=== PATIENT | female | born 2000 | race Caucasian/White ===

== ENCOUNTER 2021-01-29 04:25 | Emergency (ER) | payer MEDICAID, SELFPAY ==
[2021-01-29 04:33] VITALS: BMI 17.2
[2021-01-29 04:45] LABS: Microscopic, Urine URINE MICROSCOPIC (MICROSCOPIC)
[2021-01-29 04:47] LABS: Appearance,Urine CLEAR (Clear); Basophils % 0.2 % (0.1-2.0); Bilirubin,Urine Negative (Negative); Blood, Urine TRACE-L (Negative); Color,Urine YELLOW (Yellow); Eosinophils # 0.1 K/mm3 (0.0-0.4); Eosinophils % 0.9 % (0.1-12.0); Glucose,Urine (UA) Negative (Negative); Hematocrit 39.5 % (37.0-47.0); Hemoglobin 13.6 g/dL (12.2-16.2); Ketones,Urine Negative (Negative); Leukocyte Esterase,Urine TRACE (Negative); Lymphocytes # 1.2 K/mm3 (0.7-4.5); Mean Corpuscular HGB Conc 34.3 g/dL (31.8-35.4); Mean Corpuscular Hemoglobin 31.2 pg (27.0-31.2); Mean Corpuscular Volume 90.8 fl (81-99); Mean Platelet Volume 9.1 fl (7.4-10.4); Monocytes # 0.9 K/mm3 (0.1-1.0); Monocytes % 8.5 % (1.7-9.3); Neutrophils # 8.6 K/mm3 (1.8-7.8); Neutrophils % 79.4 % (37.0-80.0); Nitrate,Urine POSITIVE (Negative); PH,Urine 6.5 (5.0-8.5); Platelet Count 165 K/mm3 (142-424); Protein,Urine Negative (Negative); Red Blood Count 4.35 M/mm3 (4.20-5.40); Red Cell Distribution Width 12.4 % (11.5-17.5); Urobilinogen,Urine 0.2 EU/dl (0.2); White Blood Count 10.8 K/mm3 (4.8-10.8)
--- NOTE | 2021-01-29 04:47 | CT_ITS ---
PROCEDURE: CT ABDOMEN PELVIS WO CON CLINICAL INDICATION: left flank pain Left flank pain with hematuria COMPARISON: No exams were available for comparison TECHNIQUE: Axial images obtained with sagittal and coronal reformats. All CT scans at the facility use one or more dose reduction, viz: automated exposure control, ma/kV adjustment per patient size (including targeted exams where dose is matched to indication, i.e. head), or iterative reconstruction technique. FINDINGS: LOWER THORAX: There is a noncalcified nodule in the right lower lobe posteriorly measuring approximately 4 mm ABDOMEN & PELVIS: The liver, gallbladder, adrenal glands, and pancreas have an unremarkable appearance. No renal or ureteral calculi. No hydronephrosis. Questionable mild edematous changes of the left kidney. Mild haziness of the perinephric fat on the left medially. Borderline splenomegaly noted at 13 cm. Mild amount of retained colonic feces. No evidence of appendicitis or diverticulitis. The uterus is anteverted. Mild nonspecific thickening of the urinary bladder wall. Small amount fluid is present in the pelvis. No acute bony findings. There are few small mildly prominent retroperitoneal lymph nodes. IMPRESSION: Questionable edematous appearance of the left kidney with minimal stranding of the perinephric fat. No hydronephrosis or calculus apparent. Findings may be related to underlying infection or recently passed stone. There are some mildly prominent retroperitoneal lymph nodes which could be reactive in nature. Mild amount of retained colonic feces 4 mm nodule right lower lobe posteriorly of questionable clinical significance. Dictated by: Landon Jordan MD 01/29/2021 07:31 Landon Jordan MD in [place] 01/29/2021 07:31
[2021-01-29 04:48] LABS: Urine Pregnancy, HCG Qual. Negative (Negative)
[2021-01-29 04:52] VITALS: BP 139/78; PULSE 103; RESP 20; TEMP 37.2; O2SAT 98; BMI 19.2
[2021-01-29 04:54] LABS: Alanine Aminotransferase 11 U/L (12-78); Albumin Level 4.9 g/dl (3.5-5.0); Albumin/Globulin Ratio 1.4 (1.1-1.8); Alkaline Phosphatase 93 U/L (38-126); Amylase 67 U/L (30-110); Anion Gap 13.8 mEq/L (5-15); Aspartate Amino Transferase 21 U/L (14-36); Bilirubin,Total 0.8 mg/dl (0.2-1.3); Blood Urea Nitrogen 8 mg/dl (7-17); Calcium 9.7 mg/dl (8.4-10.2); Carbon Dioxide 21 mmol/L (22.0-30.0); Chloride 105 mmol/L (98-107); Creatinine Clearance Estimated 96 mL/min (50-200); Estimated Glomerular Filt Rate 91 ml/min (>60); GFR (African American) 110 ML/MIN (>60); Globulin 3.5 g/dL (1.3-3.2); Glucose 121 mg/dl (74-100); Potassium 3.8 mmoL/L (3.5-5.1); Sodium 136 mmol/L (136-145); Total Protein,Serum 8.4 g/dl (6.3-8.2)
[2021-01-29 04:55] LABS: Lipase 60 U/L (23-300)
[2021-01-29 05:12] LABS: Bacteria,Urine 2+ /lpf; Mucus,Urine 1+ /lpf; WBC,Urine Occasional #/hpf (0-3)
[2021-01-29 05:14] LABS: Procalcitonin 0.051 ng/mL (0.0-2.0)
--- NOTE | 2021-01-29 05:23 | [facility].EDUROGF ---
ED Disposition Clinical Impression: Flank pain, acute UTI (urinary tract infection) Qualifiers: Urinary tract infection type: site unspecified Hematuria presence: without hematuria Qualified Code(s): N39.0 - Urinary tract infection, site not specified Disposition: Home, Self-Care Condition on Discharge: Good Instructions: DI for Flank Pain Additional Instructions: call for culture results and consider seeing urology Prescriptions: levoFLOXacin [Levaquin 500mg tab] 500 mg PO DAILY #7 tab Transmission Status: Pending to [facility] Referrals: PCP,No [Primary Care Provider] - - Critical Care Critical Care Time: No Attestation: On 01/29/21, the high probability of a clinically significant, sudden or life threatening deterioration of the following system(s) required my full and direct attention, intervention and personal management. The time I documented below is in addition to time spent performing reported procedures but includes the following listed in this critical care notation. Medical Decision Making - Medical Records Medical records reviewed: Yes: I reviewed the patient's medical records. - Javier Inquiry Pt receiving controlled substance: No Vital Signs: 01/29/21 04:52 Temperature 99.0 F Temperature Source Oral Pulse Rate [Right] 103 H Respiratory Rate 20 Blood Pressure [Right Arm] 139/78 Blood Pressure Mean [Right Arm] 98 02 Sat by Pulse Oximetry 98 Oxygen Delivery Method Room Air - Lab Data Lab results reviewed: Yes: I reviewed the patient's lab results. Lab Results 01/29/21 04:40: Urine Color Yellow, Urine Appearance Clear, Urine pH 6.5, Ur Specific [place] 1.020, Urine Protein Negative, Urine Glucose (UA) Negative, Urine Ketones Negative, Urine Blood Trace-l, Urine Nitrate Positive, Urine Bilirubin Negative, Urine Urobilinogen 0.2, Ur Leukocyte Esterase Trace, Urine RBC 3-5, Urine WBC Occasional, Ur Squamous Epith Cells 3-5, Urine Bacteria 2+, Urine Mucus 1+ 01/29/21 04:40: WBC 10.8, RBC 4.35, Hgb 13.6, Hct 39.5, MCV 90.8, MCH 31.2, MCHC 34.3, RDW 12.4, Plt Count 165, MPV 9.1, Neut % (Auto) 79.4, Lymph % (Auto) 11.0, [place] % (Auto) 8.5, Eos % (Auto) 0.9, Baso % (Auto) 0.2, Neut # (Auto) 8.6 H, Lymph # (Auto) 1.2, [place] # (Auto) 0.9, Eos # (Auto) 0.1, Baso # (Auto) 0.0 01/29/21 04:40: Sodium 136, Potassium 3.8, Chloride 105, Carbon Dioxide 21 L, Anion Gap 13.8, BUN 8, Creatinine 0.80, Estimated Creat Clear 96, Estimated GFR 91, Est GFR ( Amer) 110, Glucose 121 H, Calcium 9.7, Total Bilirubin 0.8, AST 21, ALT 11 L, Alkaline Phosphatase 93, C-Reactive Protein 29.0 H, Total Protein 8.4 H, Albumin 4.9, Globulin 3.5 H, Albumin/Globulin Ratio 1.4, Amylase 67, Procalcitonin 0.051 01/29/21 04:40: Lipase 60 01/29/21 04:40: Urine HCG, Qual Negative Result diagrams: 01/29/21 04:40 01/29/21 04:40 Orders (Tests/Meds): ED MEDICATIONS Generic Name Dose Route Start Last Admin Trade Name Freq PRN Reason Stop Dose Admin Sodium Chloride 1,000 mls @ 999 mls/hr 01/29/21 05:00 01/29/21 05:00 Sod Chlor 0.9% 1000ml Bag IV 01/29/21 06:00 999 mls/hr .[id number] KYLIE Administration Discontinued Medications Generic Name Dose Route Start Last Admin Trade Name Freq PRN Reason Stop Dose Admin Ketorolac Tromethamine 30 mg 01/29/21 04:52 01/29/21 05:00 Ketorolac 30mg/Ml Vial IV 01/29/21 04:53 30 mg ONCE ONE Administration Ondansetron HCl 4 mg 01/29/21 04:52 01/29/21 05:00 Ondansetron 4mg/2ml Vial IV 01/29/21 04:53 4 mg ONCE ONE Administration ORDERS Category Date Time Status CT abdomen pelvis wo con Stat Cat Scan 01/29/21 04:47 Taken Complete Blood Count Auto Diff Stat Lab 01/29/21 04:40 Results Diarrhea 23 Panel, PCR Stat Lab 01/29/21 04:36 Ordered Erythrocyte Sedimentation Rate Stat Lab 01/29/21 04:40 Results Urine Culture Stat Micro 01/29/21 04:40 Received - CT Data CT Scan: Abdomen, Pelvis Time Received: 05:[address] Reviewed: Y
[2021-01-29 06:03] LABS: Erythrocyte Sedimentation Rate 39 mm/hr (0-20)
[2021-01-29 06:04] VITALS: BP 105/55; PULSE 87; RESP 17; TEMP 36.7; O2SAT 97
== END 2021-01-29 06:16 | disposition home or self-care (01) ==
PROVIDERS: Emergency Provider Emergency Medicine
DX: N30.00 Acute cystitis without hematuria (principal); B96.20 Unspecified Escherichia coli [E. coli] as the cause of diseases classified elsewhere
CPT/HCPCS: 74176; 80053; 81001; 81025; 82150; 83690; 84145; 85025; 85651; 86140; 87086; 87088; 87186; 99283; J2405

== ENCOUNTER 2024-01-12 09:50 | Outpatient (CLI) | payer MEDICAID, SELFPAY | END 2024-01-12 23:59 | LOC: UTC.OUT 09:52 | PROVIDERS: Visit Provider Nurse Practitioner Family | DX: Z01.10 Encounter for examination of ears and hearing without abnormal findings (principal) ==